=== PATIENT | female | born 1965 | race Native Hawaiian/Other Pacific Islander ===

== ENCOUNTER 2017-04-13 08:34 | Day surgery (SDC) | payer BC ==
[2017-04-13] MEDS ORDERED: LACTATED RINGERS 1,000 ML IV ONE (09:16)
[2017-04-13] MEDS ORDERED: MIDAZOLAM 2 MG/2 ML VIAL IVP ONE (10:13)
[2017-04-13] MEDS ORDERED: fentaNYL 100 MCG/2 ML VIAL IVP ONE (10:13)
[2017-04-13 11:15] VITALS: BP 112/56
== END 2017-04-13 08:35 | disposition home or self-care (01) ==
LOC: SDS 08:34
PROVIDERS: ATTEND Surgery
PROC: 0DBN8ZZ Excision of Sigmoid Colon, Via Natural or Artificial Opening Endoscopic (ICD-10-PCS; 2017-04-13)
PROC: 0DBP8ZZ Excision of Rectum, Via Natural or Artificial Opening Endoscopic (ICD-10-PCS; principal; 2017-04-13 09:45)
DX: Z12.11 Encounter for screening for malignant neoplasm of colon (principal); D12.5 Benign neoplasm of sigmoid colon; K62.1 Rectal polyp; K64.8 Other hemorrhoids
CPT/HCPCS: 45380; J7120